=== PATIENT | male | born 2000 | race Caucasian/White ===

== ENCOUNTER 2019-11-15 09:33 | Emergency (ER) | payer OTHER ==
--- NOTE | 2019-11-15 09:39 | ED.PDOC ---
History of Present Illness - General Time Seen by Provider: 11/15/19 09:37 Source: patient - History of Present Illness Initial Comments: 19-year-old male with chief complaint of left knee pain following acute injury 3 days ago. Patient was playing basketball at that time and jumped up and came down and landed directly on the medial aspect of the left knee. He reports immediate sharp pain to the medial aspect of the knee and initially had trouble bearing weight and walking on the left leg. He reports overall the pain is improved but states that he continues to have intermittent pain to the medial aspect of the knee, mild at rest and with the leg straight and, worsens sharply with full bending of the knee, pain radiates occasionally up the medial thigh and sometimes down the medial lower leg, has been taking some [id number] analgesics and applying cold packs with moderate relief. Denies any swelling of the knee, color change, feeling of instability, clicking/popping. Denies any weakness or numbness. Allergies/Adverse Reactions: Allergies NO KNOWN ALLERGY Allergy (Verified 11/15/19 10:04) Home Medications: Ambulatory Orders NK 11/15/19 Review of Systems - Review of Systems Review of Systems: 11/15/19 10:20 as per HPI All other Systems: Reviewed and Negative Past Medical History (General) - Patient Medical History Hx Seizures: No Hx Stroke: No Hx Dementia: No Hx Asthma: No Hx of COPD: No Hx Cardiac Disorders: No Hx Congestive Heart Failure: No Hx Pacemaker: No Hx Hypertension: No Hx Thyroid Disease: No Hx Diabetes: No Hx Gastroesophageal Reflux: No Hx Renal Disease: No Hx Cancer: No Hx of HIV: No Hx Hepatitis C: No Hx MRSA: No - Vaccination History Hx Tetanus, Diphtheria Vaccination: Yes Hx Influenza Vaccination: Yes - last season - Social History Hx Tobacco Use: No Hx Alcohol Use: No Hx Substance Use: No Hx Substance Use Treatment: No Hx Depression: No - Female History Patient : No Family Medical History - Family History Father Family History: No Known Living Status: Still Living Physical Exam - Physical Exam General Appearance: Alert, Comfortable, No apparent distress Eyes, Ears, Nose, Throat: normal ENT inspection Neck: full range of motion, supple, normal inspection Cardiovascular/Respiratory: regular rate, rhythm, no M/R/G, normal peripheral pulses, no JVD, normal breath sounds, no respiratory distress Gastrointestinal/Abdominal: non-tender Back: normal inspection Thigh/Hip: normal inspection Leg: normal inspection, non-tender, no evidence of injury, normal ROM Knee: limited ROM - Range of motion of the knee is minimally limited on flexion due to pain. Ligament testing is all normal and equal bilaterally., other - Left knee with 2 x 2 centimeter scab to anterior aspect of knee which is healing well, otherwise inspection is normal without bruising/swelling/deformity. There is mild tenderness to palpation of the medial aspect of the knee near the joint line. Ankle: normal inspection, non-tender, no evidence of injury, normal ROM, bone tenderness Foot: normal inspection Neuro/Tendon: normal sensation, normal motor functions Mental Status: alert, oriented x 3 Skin: normal color, warm/dry Progress - Progress Progress: 11/15/19 10:00 Left knee pain -Consider contusion most likely versus strain/sprain. Consider also knee fracture, MCL strain/sprain/tear, ACL tear, meniscal injury, other intra- articular injury -Obtain x-ray imaging of the left knee, cold compress and Rashawn wrap for pain 11/15/19 10:23 -X-ray imaging of the left knee reveals no acute processes per my read. Discussed findings with patient as well as likely diagnosis of acute left knee contusion and strain. Advised continued supportive care at home and conservative measures with expectant management. Advised to follow-up closely with his primary care physician for repeat evaluation in the next 1 to 2 weeks. He continues to have significant pain or other concerning symptoms such as instability, he may need outpatient MRI and/or referral to PT and orthopedic surgery. -Discharged home in good condition, return warnings discussed Jcarlos Mae MD Billing #[id number] Departure - Departure Clinical Impression: Contusion of left knee, initial encounter Strain of left knee Qualifiers: Encounter type: initial encounter Qualified Code(s): S86.912A - Strain of unspecified muscle(s) and tendon(s) at lower leg level, left leg, initial encounter Time of Disposition: 10:25 Disposition: Discharge to Home or Self Care Condition: Good Instructions: Contusion (DC), Knee Sprain (DC) Diet: resume usual diet Activity: increase activity as tolerated Home Medications: Ambulatory Orders NK 11/15/19 Additional Instructions: Continue applying a cold pack to the left knee for 15 to 20 minutes every 1-2 hours for the next 2 to 3 days to help limit pain and swelling. You may also wear the compress to the left knee as directed as you find that it helps. Continue taking [id number] medication such as ibuprofen 600 mg every 6 hours as needed and Tylenol 650 g every 6 hours as needed for pain and swelling. Follow-up with your primary care doctor is recommended in the next 1 to 2 weeks for repeat evaluation or sooner as needed. If you continue to have significant pain or other concerning symptoms such as stability of the left knee you may need outpatient MRI of the left knee or referral to physical therapy/orthopedic surgery.
--- NOTE | 2019-11-15 10:02 | RAD ---
EXAM DESCRIPTION: Knee,Left Complete CLINICAL HISTORY: acute left knee pain COMPARISON: None. IMPRESSION: 3 views of the left knee show no acute fracture, focal bone destruction, or joint dislocation. Soft tissues are unremarkable. No joint effusion is identified. Electronically signed by: Kobi Dennis MD 11/15/2019 10:00 AM CDT
[2019-11-15 10:04] VITALS: TEMP 97.5
[2019-11-15 10:33] VITALS: BP 133/71; O2SAT 97
== END 2019-11-15 10:32 | disposition home or self-care (01) ==
LOC: ER 09:33
DX: S86.912A Strain of unspecified muscle(s) and tendon(s) at lower leg level, left leg, initial encounter (principal); W22.09XA Striking against other stationary object, initial encounter; Y93.67 Activity, basketball; Y92.9 Unspecified place or not applicable

== ENCOUNTER 2019-11-18 20:25 | Emergency (ER) | payer OTHER ==
[2019-11-18 20:44] VITALS: O2SAT 100
[2019-11-18] MEDS ORDERED: SODIUM CHLORIDE 0.9% (FLUSH) 10 ML SYG IV PRN (20:55)
[2019-11-18] MEDS ORDERED: ONDANSETRON INJ 4 MG/2 ML VIAL IV ONE (20:55)
--- NOTE | 2019-11-18 21:26 | RAD ---
EXAM DESCRIPTION: Chest,1 View CLINICAL HISTORY: 19 years Male palpitations COMPARISON: None TECHNIQUE: Portable AP view of the chest is obtained. FINDINGS IN THE CHEST: Heart: Allowing for magnification factors related to AP portable technique and body habitus, the heart is normal in size and configuration. Vasculature: [] There is no evidence of aortic aneurysm or acute findings. The pulmonary vascularity is normal. Mediastinum: No evidence of mass or adenopathy. Lungs: There is no focal consolidation in the lungs. Pleura: There are no pleural effusions. There are no pneumothoraces. Osseous structures: No evidence of acute fracture, osteolytic lesions or osteoblastic lesions. Tubes and catheters: None Chest wall: Unremarkable. Visualized Abdomen: Unremarkable. IMPRESSION: No significant [] radiographic abnormalities in the chest. Remainder of findings as described above. Electronically signed by: Jaquelin Garcia MD 11/18/2019 9:24 PM CDT
--- NOTE | 2019-11-18 21:58 | ED.PDOC ---
History of Present Illness - General Chief Complaint: Cardiovascular Problem Stated Complaint: my heart races from time to time Time Seen by Provider: 11/18/19 20:55 Source: patient, RN notes reviewed, Vital Signs reviewed, family - significant o ther Exam Limitations: no limitations - History of Present Illness Initial Comments: Patient is a 19-year-old white male who presents with complaints of palpitations and intermittent chest pain. Patient states this is been ongoing x4-month, it is intermittent in nature. The pain is dull and aching when it occurs. Worse with exertion though he occasionally gets these episodes when he naps or at night when he sleeps. The symptoms are becoming more frequent. Patient admits to drinking significant amounts of caffeinated beverages every day, specifically, sodas. Timing/Duration: other - 4 months Severity: moderate Improving Factors: rest Worsening Factors: other - Exercise Associated Symptoms: denies symptoms Allergies/Adverse Reactions: Allergies NO KNOWN ALLERGY Allergy (Verified 11/15/19 10:04) Home Medications: Ambulatory Orders NK 11/15/19 Review of Systems - Review of Systems Constitutional: States: no symptoms reported, see HPI. Denies: chills, fever, malaise, weakness EENTM: States: no symptoms reported. Denies: eye pain, blurred vision, double vision Respiratory: States: no symptoms reported. Denies: cough, short of breath Cardiology: States: see HPI, palpitations. Denies: chest pain, syncope Gastrointestinal/Abdominal: States: no symptoms reported. Denies: abdominal pain, nausea Genitourinary: States: no symptoms reported. Denies: dysuria, frequency Musculoskeletal: States: no symptoms reported. Denies: back pain, joint pain, neck pain Skin: States: no symptoms reported. Denies: change in color, rash Neurological: States: no symptoms reported. Denies: headache, numbness, tingling, tremors, weakness Endocrine: States: no symptoms reported. Denies: increased hunger, increased thirst, increased urine Hematologic/Lymphatic: States: no symptoms reported. Denies: blood clots, easy bleeding All other Systems: Reviewed and Negative Past Medical History (General) - Patient Medical History Hx Seizures: No Hx Stroke: No Hx Dementia: No Hx Asthma: No Hx of COPD: No Hx Cardiac Disorders: No Hx Congestive Heart Failure: No Hx Pacemaker: No Hx Hypertension: No Hx Thyroid Disease: No Hx Diabetes: No Hx Gastroesophageal Reflux: No Hx Renal Disease: No Hx Cancer: No Hx of HIV: No Hx Hepatitis C: No Hx MRSA: No Surgical History: no surgical history - Vaccination History Hx Tetanus, Diphtheria Vaccination: Yes Hx Influenza Vaccination: No Hx Pneumococcal Vaccination: No Immunizations Up to Date: No - Social History Hx Tobacco Use: Yes Hx Alcohol Use: Yes Hx Substance Use: No Hx Substance Use Treatment: No Hx Depression: No - Female History Patient : No Family Medical History - Family History Father Family History: No Known Living Status: Still Living Physical Exam - Physical Exam General Appearance: Alert, Comfortable, Unkempt, Well Developed, Well Hydrated, Well Nourished Eye Exam: bilateral normal Ears, Nose, Throat: hearing grossly normal, normal ENT inspection, normal pharynx Neck: non-tender, full range of motion, supple, normal inspection Respiratory: chest non-tender, lungs clear, normal breath sounds, no respiratory distress, no accessory muscle use Cardiovascular/Chest: normal peripheral pulses, regular rate, rhythm, no edema, no gallop, no JVD, no murmur Peripheral Pulses: radial,right: 2+, radial,left: 2+ Gastrointestinal/Abdominal: normal bowel sounds, non tender, soft Back Exam: normal inspection, no CVA tenderness, no vertebral tenderness Extremity: normal range of motion, non-tender, normal inspection Neurologic: concession supervisor II-XII nml as tested, no motor/sensory deficits, alert, normal mood/affect, oriented x 3 Skin Exam: normal color, warm/dry Lymphatic: no adenopathy Progress - Progress Progress: Differential diagnosis: Caffeine overuse, electrolyte abnormality, palpitations, acute AR among others. 11/18/19 22:12 Work-up is unremarkable. EKG is unremarkable. Plan on discharge home with follow-up with his PCP. I will refer the patient to the [facility] clinic. Patient and his girlfriend voiced understanding and agreement with plan of care. Xavier Jerez M.D. #[id number] - Results/Orders Results/Orders: EXAM DESCRIPTION: Chest,1 View CLINICAL HISTORY: 19 years Male palpitations COMPARISON: None TECHNIQUE: Portable AP view of the chest is obtained. FINDINGS IN THE CHEST: Heart: Allowing for magnification factors related to AP portable technique and body habitus, the heart is normal in size and configuration. Vasculature: [] There is no evidence of aortic aneurysm or acute findings. The pulmonary vascularity is normal. Mediastinum: No evidence of mass or adenopathy. Lungs: There is no focal consolidation in the lungs. Pleura: There are no pleural effusions. There are no pneumothoraces. Osseous structures: No evidence of acute fracture, osteolytic lesions or osteoblastic lesions. Tubes and catheters: None Chest wall: Unremarkable. Visualized Abdomen: Unremarkable. IMPRESSION: No significant [] radiographic abnormalities in the chest. Remainder of findings as described above. Electronically signed by: Jaquelin Garcia MD 11/18/2019 9:24 PM EKG performed 18 November 2019 at 2045 hrs.: Normal sinus rhythm with sinus arrhythmia at 61 minutes/min, moderate voltage criteria for LVH, borderline EKG. No previous EKG for comparison. 11/18/19 20:45 EKG STAT 11/18/19 20:55 IV Care:Saline Lock per Protoc QSHIFT Telemetry .ONCE Sodium Chloride 0.9% (Flush) [Saline Flush Syringe] 10 ml IV PRN PRN EKG Stat Pulse Ox Stat Pulse Oximetry Assessment DAILY Laboratory Results - last 24 hr 11/18/19 21:17 WBC 8.7 RBC 4.57 L Hgb 13.7 L Hct 39.7 L MCV 86.8 MCH 29.9 MCHC 34.5 RDW 13.5 Plt Count 228 MPV 8.1 Absolute Neuts (auto) 5.90 Absolute Lymphs (auto) 1.90 Absolute Monos (auto) 0.70 Absolute Eos (auto) 0.20 Absolute Basos (auto) 0.00 Neutrophils % 67.3 Lymphocytes % 22.1 Monocytes % 7.5 Eosinophils % 2.6 Basophils % 0.5 PT 11.1 H INR 1.12 PTT (SP) 25.4 Sodium 139 Potassium 3.7 Chloride 102 Carbon Dioxide 26 Anion Gap 14.7 BUN 15 Creatinine 0.87 BUN/Creatinine Ratio 17.2 Random Glucose 110 H Serum Osmolality 279.0 Calcium 9.1 Magnesium 2.2 Total Bilirubin 1.0 Direct Bilirubin 0.1 Indirect Bilirubin 0.9 H AST 15 ALT 10 Alkaline Phosphatase 117 Creatine Kinase 140 CK-MB (CK-2) 2.2 CK-MB (CK-2) % Not Reportable Troponin I < 0.02 Serum Total Protein 7.3 Albumin 4.8 Vital Signs 11/18/19 11/18/19 20:30 22:01 Temperature 99.2 F 98.0 F Pulse Rate [ 72 60 monitor] Respiratory 17 21 Rate Blood Pressure 98/74 110/64 [Left Arm] O2 Sat by Pulse 100 100 Oximetry Departure - Departure Clinical Impression: Palpitations Time of Disposition: 22:15 Disposition: Discharge to Home or Self Care Condition: Good Departure Forms: ED Discharge - Pt. Copy, Patient Portal Self Enrollment Instructions: DI for Chest Pain, Palpitations (DC) Diet: resume usual diet Activity: increase activity as tolerated Referrals: [facility] TOMLIN[facility] [employer] WORK[employer] [Active Staff] - 1-5 Days Home Medications: Ambulatory Orders NK 11/15/19
[2019-11-18 22:40] VITALS: BP 111/62; TEMP 97.8
== END 2019-11-18 22:40 | disposition home or self-care (01) ==
LOC: ER 20:25
DX: R00.2 Palpitations (principal); R07.9 Chest pain, unspecified; Z87.891 Personal history of nicotine dependence
CPT/HCPCS: 36415; 71045; 80048; 80076; 82550; 82553; 84484; 85025; 85610; 85730; 93005; A4216; J2405